=== PATIENT | male | born 1960 | race Caucasian/White ===

== ENCOUNTER → 2019-04-07 13:18 | Outpatient (CLI) | payer BC, SELFPAY ==
[2019-04-07 13:59] LABS: Cholesterol 188 mg/dL (140-199); HDL Cholesterol 56 mg/dL (40-60); LDL Cholesterol Calculated 111 mg/dL (<100); Triglycerides 106 mg/dL (35-150)
[2019-04-07 14:30] LABS: Prostate Specific Antigen Scrn 0.881 ng/mL (0.1-4.0)
[2019-04-07 15:33] LABS: Vitamin D 25 Hydroxy (D3) 62.8 ng/mL (30.0-100.0)
== END ==
PROVIDERS: PCP Student in an Organized Health Care Education/Training Program; Visit Provider Student in an Organized Health Care Education/Training Program
DX: Z13.220 Encounter for screening for lipoid disorders (principal); E55.9 Vitamin D deficiency, unspecified; Z12.5 Encounter for screening for malignant neoplasm of prostate
CPT/HCPCS: 36415; 80061; 82306; G0103

== ENCOUNTER → 2019-12-17 10:31 | Outpatient (CLI) | payer BC, SELFPAY ==
[2019-12-18 20:43] LABS: COVID19 Sendout Not Detected (Not Detect)
== END ==
PROVIDERS: PCP Student in an Organized Health Care Education/Training Program; Visit Provider Physician Assistant
DX: Z11.59 Encounter for screening for other viral diseases (principal)
CPT/HCPCS: 87635

== ENCOUNTER 2019-12-20 12:47 | Day surgery (SDC) | payer BC, SELFPAY ==
[2019-12-20 13:01] VITALS: BP 125/74; PULSE 62; RESP 16; TEMP 36.7; O2SAT 100; BMI 25.0
[2019-12-20] MEDS: SODIUM CHLORIDE 0.9% 1,000 ML 200 ML IV (13:22)
--- NOTE | 2019-12-20 13:32 | P.HP_ITS ---
History of Present Illness History of Present Illness Date Patient Seen: 12/20/19 Time Patient Seen: 13:32 [address]: [facility] Narrative: This is a 59-year-old man who had a prior screening colonoscopy at age 48, which he reports was normal. He denies any new symptoms of melena, hematochezia, unexplained weight loss, unexplained abdominal pain. He denies any family history of colon cancers or colon polyps. ROS Thirteen system review is otherwise negative other than as mentioned below and in HPI. PE: GENERAL: Well groomed and cooperative. Appears stated age. Answers questions promptly and appropriately. Vital signs noted. HENT: Normocephalic, atraumatic. Hearing intact. EYES: Conjunctiva pink, sclera white, no periorbital swelling. CARDIOVASCULAR: Regular rate. No pedal edema. RESPIRATORY: Non-tachypneic, breathing comfortably on room air. GASTROINTESTINAL: Abdomen soft and non-distended GENITALURINARY: No flank tenderness. MUSCULOSKELETAL: Equal tone and mass bilaterally. SKIN: Warm, dry, soft, appropriate color for ethnicity. No other lesions, rashes, or wounds. NEURO: Alert and Oriented X 3. No gross sensory deficits, or cognitive issues. PSYCH: Appropriate affect and mood. Patient History Medical History Anxiety (Chronic ~1994) Chicken pox (Resolved ~1971) Hearing loss (Resolved 2017) Measles (Resolved ~1963) Precancerous skin lesion (Resolved ~1999) Vitamin D insufficiency (Inactive) Surgical History Anesthesia (Resolved) History of tonsillectomy (Resolved 1963) History of vasectomy (Resolved 1988) Family & Social History Family History Mother Cancer Brain tumor Brother Overweight Grandmother Breast cancer Grandfather No problems noted. Family/Other No problems noted. Family/Other No problems noted. Social History: household members spouse Tobacco & Substance use: Smoking Status Never smoker alcohol intake current alcohol intake frequency a few times a week Substance Use Type does not use Meds Home Medications and Allergies Home Medications Medication Instructions Recorded Confirmed Type aspirin 81 mg tablet,delayed 81 mg PO DAILY #30 tab 03/09/18 12/20/19 Rx release lorazepam 0.5 mg tablet 0.25 mg PO BEDTIME PRN #10 tab 04/07/19 12/20/19 Rx Allergies Allergy/AdvReac Type Severity Reaction Status Date / Time No Known Drug Allergies Allergy Verified 04/07/19 12:46 Exam Vital Signs (past 8 hours): - 12/20/19 13:01 Temperature 98.1 F Pulse Rate 62 Respiratory Rate 16 Blood Pressure 125/74 Pulse Oximetry 100 Oxygen Delivery Method Room Air Assessment & Plan Assessment and plan (1) At average risk for colon cancer: Status: Acute Assessment & Plan narrative: Risks and benefits of screening colonoscopy and possible polypectomy were discussed with the patient including risk of bleeding, perforation, need for additional procedures, risks of anesthesia. The patient desires to proceed with the colonoscopy procedure. COVID-19 COVID-19 status: Negative Result date/Date tested (Pos, Neg/Pending): 12/17/19 Time Spent With Patient Time with patient: 15-24 minutes Quality VTE Deep Vein Thrombosis/Pulmonary Embolism Present on Admission: No
--- NOTE | 2019-12-20 13:35 | P.OP.ENDO_ITS ---
Operative Date/Time/Diagnoses Date of procedure: 12/20/19 Time of procedure: 13:35 Pre-op diagnosis: Average risk for colon cancer Post-op diagnosis: other (Normal colon) Procedure & Clinicians Study performed: Colonoscopy Procedural sedation performed by the endoscopist Indications: 59-year-old man at average risk for colon cancer, prior screening colonoscopy 10 years ago Surgeon: Melissa Kaur Procedure Notes SCOAP/Timeout: Performed Procedure in detail: The patient was brought to the room and placed in left lateral decubitus position with all bony prominences padded. A time-out was performed and then the patient was given procedural sedation starting with 4 mg of Versed and 100 mcg of fentanyl. Vitals were monitored throughout the procedure and remained stable. Once adequately sedated, the procedure was begun. A rectal exam was performed revealing no abnormalities. The colonoscope was then introduced to the rectum and advanced to the cecum in the usual fashion. The cecum was identified by the appendiceal orifice, the mucosal tri- fold, and the ileocecal valve. The scope was then retracted while rotating side to side and examining each mucosal fold. At the conclusion of the procedure retroflexion was performed and small grade 1-2 internal hemorrhoids without stigmata of bleeding were seen. The scope was then withdrawn from the rectum the procedure was concluded. The patient tolerated the procedure well and was transferred to the PACU in stable condition. Scope withdrawal time: 7 Sedation minutes: 16 Specimen(s): none sent Complications: none Impression: Normal colon Post-procedure Recommendations: Colonscopy in 10 years Follow up: as needed Disposition: PACU
[2019-12-20] MEDS: fentaNYL 250 MCG/5 ML INJ IV (13:56)
[2019-12-20] MEDS: MIDAZOLAM 5 MG/5 ML VIAL IV (13:56)
[2019-12-20 14:00] VITALS: BP 107/60; PULSE 60; RESP 12; TEMP 36.7; O2SAT 98
[2019-12-20 14:05] VITALS: BP 115/76; PULSE 65; RESP 12; O2SAT 97
[2019-12-20 14:10] VITALS: BP 120/74; PULSE 62; RESP 16; TEMP 36.7; O2SAT 99
== END 2019-12-20 14:26 | disposition home or self-care (01) ==
PROVIDERS: PCP Student in an Organized Health Care Education/Training Program; Referring Provider Student in an Organized Health Care Education/Training Program; Visit Provider Surgery
PROC: 0DJD8ZZ Inspection of Lower Intestinal Tract, Via Natural or Artificial Opening Endoscopic (ICD-10-PCS; CPT 45378; principal; 2019-12-20 13:45)
DX: Z12.11 Encounter for screening for malignant neoplasm of colon (principal); K64.0 First degree hemorrhoids
CPT/HCPCS: 45378; 99152; J2250; J3010

== ENCOUNTER 2021-02-04 16:12 | Emergency (ER) | payer BC, SELFPAY ==
--- NOTE | 2021-02-04 16:21 | DI.CT.S_ITS ---
PROCEDURE: CT HEAD/BRAIN WO CON INDICATIONS: trauma TECHNIQUE: Noncontrast 4.5 mm thick angled axial sections acquired from the foramen magnum to the vertex, with coronal and sagittal reformats. For radiation dose reduction, the following was used: automated exposure control, adjustment of mA and/or kV according to patient size. COMPARISON: [facility], CR, XR SHOULDER RT MIN 2V, 02/04/2021, 16:32. [facility], CT, CT CERVICAL SPINE WO CON, 02/04/2021, 16:38. FINDINGS: Image quality: Excellent. CSF spaces: Basal cisterns are patent. No extra-axial fluid collections. The ventricles are symmetric in size and shape, yet appear prominent. Brain: No intracranial bleeds or masses. There is cerebral volume loss for age, with resultant ventricular and sulcal prominence. There are periventricular and deep white matter chronic small vessel ischemic changes. There is intracranial internal carotid artery atherosclerosis. Skull and face: There is right posterior scalp hematoma seen, without an associated calvarial fracture. Calvarium and visualized facial bones appear intact, without suspicious lesions. There is an apparent osteoma along the inner table of the left calvarium, as on series 4, image 20 and on series 2, image 22. Sinuses: Visualized sinuses and mastoids are clear. IMPRESSION: No acute intracranial hemorrhage is seen. No acute intracranial process is seen. Right posterior scalp hematoma, without an associated fracture. The lateral ventricles demonstrate symmetric prominence. Left frontal osteoma seen along the inner table. Dictated by: Mustapha Coreas M.D. on 02/04/2021 at 15:54 Approved by: Mustapha Coreas M.D. on 02/04/2021 at 15:57
--- NOTE | 2021-02-04 16:21 | DI.RAD.S_ITS ---
PROCEDURE: XR SHOULDER RT MIN 2V INDICATIONS: trauma TECHNIQUE: 2 views of the shoulder were acquired. COMPARISON: None. FINDINGS: Bones: Acute slightly comminuted fracture involving distal right clavicular shaft is seen with depression and overlapping at fracture site. No other fracture is seen. No dislocation. Shoulder joint osteoarthritic changes are noted. No suspicious bony lesions. Visualized ribs appear intact. Soft tissues: No suspicious soft tissue calcifications. IMPRESSION: Acute slightly comminuted fracture involving right distal clavicular shaft with depression and overlapping at fracture site. Right shoulder joint osteoarthritis. No dislocation. Dictated by: Joo Palomino M.D. on 02/04/2021 at 16:46 Approved by: Joo Palomino M.D. on 02/04/2021 at 16:46
--- NOTE | 2021-02-04 16:21 | DI.CT.S_ITS ---
PROCEDURE: CT CERVICAL SPINE WO CON INDICATIONS: trauma TECHNIQUE: Noncontrast 3 mm thick sections acquired from the skull base to the T4 level. Sagittal and coronal reformats were then constructed. For radiation dose reduction, the following was used: automated exposure control, adjustment of mA and/or kV according to patient size. COMPARISON: [facility], CR, XR SHOULDER RT MIN 2V, 02/04/2021, 16:32. [facility], CT, CT HEAD/BRAIN WO CON, 02/04/2021, 16:38. FINDINGS: Image quality: Excellent. Bones: No fractures or dislocations. Visualized superior ribs are intact. There is moderate to severe disc space narrowing seen at the C5-C6 level, with posteriorly directed endplate osteophytes. Focal degenerative change is seen involving the C1-C2 interface anteriorly. Milder degenerative changes are seen elsewhere. Soft tissues: Prevertebral soft tissues are normal in thickness. No paravertebral hematomas. No apical pneumothoraces. Low-density lesions can be seen involving both sides of the thyroid. The largest is seen on the right that measures up to 1.7 cm. IMPRESSION: Negative for acute fracture. Focal C5-C6 degenerative change. Low-density lesions can be seen involving both sides of the thyroid, with the largest on the right measuring up to 1.7 cm. If clinically appropriate, please consider a scheduled follow-up thyroid ultrasound further evaluation. Dictated by: Mustapha Coreas M.D. on 02/04/2021 at 15:58 Approved by: Mustapha Coreas M.D. on 02/04/2021 at 16:00
--- NOTE | 2021-02-04 20:28 | ED.BACK ---
HPI - Back Pain/Injury General Chief Complaint: Trauma Stated Complaint: FALLEN OF A LADDER 4FT HIT HEAD RT SHOULDER INJURY Time Seen by Provider: 02/04/21 20:25 Source: patient and family () Mode of arrival: Ambulatory Limitations: no limitations History of Present Illness HPI Narrative: This is a 60-year-old male who fell off a ladder. Patient was stranding ladder in his RV when he lost his balance. He fell when the ladder fell over. Patient fell onto his right side, he did strike his head he does remember hitting the ground but his states he came inside inside the house and then went down into the basement and seemed a little bit confused initially. Patient also has a cut on his right brow and the back of his scalp. He has pain at the right shoulder. He denies any neck pain. Denies any current headache. No chest pain or shortness of breath. New numbness, tingling or weakness, no loss of bowel or bladder control. Patient states he takes an aspirin 81 mg daily he denies any other daily medications. He denies any allergies to medications. No tobacco, alcohol or illicit. Related Data Previous Rx's Medication Instructions Recorded aspirin 81 mg tablet,delayed 81 mg PO DAILY #30 tab 03/09/18 release lorazepam 0.5 mg tablet (Ativan) 0.25 mg PO BEDTIME PRN #10 tab 04/07/19 silver sulfadiazine 1 % topical 1 applictn TOP BID PRN #25 gram 02/12/20 cream (Silvadene) Allergies Allergy/AdvReac Type Severity Reaction Status Date / Time No Known Drug Allergies Allergy Verified 02/12/20 13:16 Review of Systems Review of Systems ROS Unobtainable: All systems reviewed & are unremarkable except as noted in HPI and below Patient History Medical History Anxiety (~1994) Chicken pox (~1971) Hearing loss (2017) Measles (~1963) Precancerous skin lesion (~1999) Vitamin D insufficiency Surgical History Anesthesia History of tonsillectomy (1963) History of vasectomy (1988) Family History Mother Cancer Brain tumor Brother Overweight Grandmother Breast cancer Grandfather No problems noted. Family/Other No problems noted. Family/Other No problems noted. Social History household members: spouse Smoking Status: Never smoker alcohol intake: current substance use type: does not use Smoking Status: Never smoker alcohol intake frequency: a few times a week Substance Use Type: does not use Exam Narrative Exam Narrative: GEN: Patient appears in mild distress. HEAD: No evidence of patient is 1.75 laceration of the right brow which is slightly gapped, he also has a 2 cm laceration of the right posterior scalp which is also gap. No raccoon/Nieto sign. NECK: Nontender, painless range of motion, trachea midline Negative Nexus criteria, there is no mid line tenderness, distracting injury, altered mental status, neuro deficit, recent EtOH. EYES: PERRLA, EOMI ENT: External inspection normal other than noted above trachea is midline, TM's are normal no hemotypanum, Nares are clear, no septal hematoma, no dental or oral injury, airway is normal and with normal occlusion, No bony tenderness RESP: Chest is nontender and has symmetric movement, no ecchymosis, breath sounds are normal no crackles, wheezes or rales CVS: Heart sounds are normal, no murmur noted, No JVD. ABG/GI: Nontender, soft, normal bowel sounds, no distention, no organomegaly, pelvic rock is negative NEURO: Oriented AOx3, neuro is grossly intact, sensation and motor is normal all 4 extremities moving, cranial nerves II through XII are intact, GCS is 15 PSYCH: Normal mood and affect SKIN: Intact otherwise, warm and dry, no crepitus and without decubitus BACK: No CVA tenderness, no vertebral tenderness, no step-off's, no crepitus EXT: Patient has pain with palpation of the right shoulder particularly over the AC/clavicle with some mild deformity patient has pain with any attempted movement at the shoulder. No other bony tenderness of the right arm. 2+ radial pulse bilaterally. Normal sensation in all 5 fingers with equal movement in hands and wrists. Hips are nontender, no pedal edema, normal color and temperature, normal range of motion of extremities with normal tendon exam, 2+ pulses in all four extremities Initial Vital Signs Initial Vital Signs: Vital Signs Temperature 97.8 F 02/04/21 21:40 Pulse Rate 72 02/04/21 21:40 Respiratory Rate 16 02/04/21 21:40 Blood Pressure 132/66 02/04/21 21:40 Pulse Oximetry 98 02/04/21 21:40 Procedures Laceration Repair Laceration 1: Time of procedure: 22:28 Site: scalp Side (If applicable): right Size (cm): 2 Description: linear and irregular Depth: simple, single layer Local Anesthetic: lidocaine 1% Amount of anesthesia used (mL): 4 Pre-repair: wound explored, irrigated extensively and deep structures intact Skin layer closed with: james Number of sutures: 4 Laceration 2: Time of procedure: 22:29 Site: face Side (If applicable): right (eyebrow) Size (cm): 1.75 Description: linear and irregular Depth: simple, single layer Local Anesthetic: lidocaine 1% Amount of anesthesia used (mL): 2 Pre-repair: wound explored, irrigated extensively and deep structures intact Skin layer closed with: vicryl Size (cm): 5-0 Number of sutures: 4 Scores GCS [place] coma scale eye opening: Spontaneous [place] coma scale verbal response: Orientated [place] coma scale motor response: Obey commands Luis E coma scale total score: 15 Course Orders Ordered: Discontinued Medications Ibuprofen (Ibuprofen 400 Mg Tablet) 800 mg PO NOW ONE Stop: 02/04/21 22:12 Last Admin: 02/04/21 22:18 Dose: 800 mg Documented by: AKANKSHA Lidocaine/Sodium Bicarbonate (Lido 1%/Sod Bicarb 8.4% (10ml) 10 Ml Syringe) 10 ml INJ NOW ONE Stop: 02/04/21 20:42 Last Admin: 02/04/21 21:13 Dose: 10 ml Documented by: SHAKIR Vital Signs Vital signs: Vital Signs - 8 hr 02/04/21 21:40 Temperature 97.8 F Pulse Rate 72 Respiratory Rate 16 Blood Pressure 132/66 Pulse Oximetry 98 MDM - Back Pain/Injury Imaging Data CT scan - head: Radiologist's Impression: Nick Rubin??60??M??1960 ? Allergy/Adv: No Known Drug Allergies (More??) Close Shoulder X-Ray (Signed) Joo Palomino - 02/04/[address] (Signed) Mustapha Coreas - 02/04/[address] (Signed) Mustapha Coreas - 02/04/21 Telemetry Strips 12/20/19 Launch?Image [address] [address] [address] Scan Report Signed Patient: Nick Rubin MR#: [id number] : 1960 Acct:[id number] Age/Sex: 60 / M Date of Service: 02/04/21 Loc: ED Accession Number: [id number] ?? Procedure: CT head/brain wo con Ordering Provider: Maria Dolores Rivers D.O. PROCEDURE:? CT HEAD/BRAIN WO CON ? INDICATIONS:? trauma ? TECHNIQUE:? Noncontrast 4.5 mm thick angled axial sections acquired from the foramen magnum to the vertex, with coronal and sagittal reformats.? For radiation dose reduction, the following was used:? automated exposure control, adjustment of mA and/or kV according to patient size.? ? COMPARISON:? [facility], CR, XR SHOULDER RT MIN 2V, 02/04/2021, 16:32.? [facility], CT, CT CERVICAL SPINE WO CON, 02/04/2021, 16:38. ? FINDINGS:? Image quality:? Excellent.? ? CSF spaces:? Basal cisterns are patent.? No extra-axial fluid collections.? The ventricles are symmetric in size and shape, yet appear prominent.? ? Brain:? No intracranial bleeds or masses.? There is cerebral volume loss for age, with resultant ventricular and sulcal prominence.? There are periventricular and deep white matter chronic small vessel ischemic changes.? There is intracranial internal carotid artery atherosclerosis.? ? Skull and face:? There is right posterior scalp hematoma seen, without an associated calvarial fracture.? Calvarium and visualized facial bones appear intact, without suspicious lesions.? There is an apparent osteoma along the inner table of the left calvarium, as on series 4, image 20 and on series 2, image 22. ? Sinuses:? Visualized sinuses and mastoids are clear.? ? ? IMPRESSION:? No acute intracranial hemorrhage is seen.? ? No acute intracranial process is seen.? ? Right posterior scalp hematoma, without an associated fracture. ? The lateral ventricles demonstrate symmetric prominence. ? Left frontal osteoma seen along the inner table.? ? Dictated by: Mustapha Coreas M.D. on 02/04/2021 at 15:54 ? ? Approved by: Mustapha Coreas M.D. on 02/04/2021 at 15:57?? CT - cervical spine: Radiologist's Impression: [address] [address] [address] Scan Report Signed Patient: Nick Rubin MR#: [id number] : 1960 Acct:[id number] Age/Sex: 60 / M Date of Service: 02/04/21 Loc: ED Accession Number: [id number] ?? Procedure: CT cervical spine wo con Ordering Provider: Maria Dolores Rivers D.O. PROCEDURE:? CT CERVICAL SPINE WO CON ? INDICATIONS:? trauma ? TECHNIQUE:? Noncontrast 3 mm thick sections acquired from the skull base to the T4 level.? Sagittal and coronal reformats were then constructed.? For radiation dose reduction, the following was used:? automated exposure control, adjustment of mA and/or kV according to patient size.? ? COMPARISON:? [facility], CR, XR SHOULDER RT MIN 2V, 02/04/2021, 16:32.? [facility], CT, CT HEAD/BRAIN WO CON, 02/04/2021, 16:38. ? FINDINGS:? Image quality:? Excellent.? ? Bones:? No fractures or dislocations.? Visualized superior ribs are intact.? ? There is moderate to severe disc space narrowing seen at the C5-C6 level, with posteriorly directed endplate osteophytes. Focal degenerative change is seen involving the C1-C2 interface anteriorly.? Milder degenerative changes are seen elsewhere.? ? Soft tissues:? Prevertebral soft tissues are normal in thickness.? No paravertebral hematomas.? No apical pneumothoraces.? Low-density lesions can be seen involving both sides of the thyroid.? The largest is seen on the right that measures up to 1.7 cm. ? ? IMPRESSION:? Negative for acute fracture. ? Focal C5-C6 degenerative change. ? Low-density lesions can be seen involving both sides of the thyroid, with the largest on the right measuring up to 1.7 cm. If clinically appropriate, please consider a scheduled follow-up thyroid ultrasound further evaluation. ? ? ? Dictated by: Mustapha Coreas M.D. on 02/04/2021 at 15:58 ? ? Approved by: Mustapha Coreas M.D. on 02/04/2021 at 16:00?? Extremity x-ray #1: Radiologist's Impression: Close Shoulder X-Ray (Signed) Joo Palomino - 02/04/[address] (Signed) Mustapha Coreas - 02/04/[address] (Signed) Mustapha Coreas - 02/04/21 Telemetry Strips 12/20/19 Launch?[address] [address] XRay Report Signed Patient: Nick Rubin MR#: [id number] : 1960 Acct:[id number] Age/Sex: 60 / M Date of Service: 02/04/21 Loc: ED Accession Number: [id number] ?? Procedure: XR shoulder RT min 2V Ordering Provider: Maria Dolores Rivers D.O. PROCEDURE:? XR SHOULDER RT MIN 2V ? INDICATIONS:? trauma ? TECHNIQUE:? 2 views of the shoulder were acquired.? ? COMPARISON:? None. ? FINDINGS:? ? Bones:? Acute slightly comminuted fracture involving distal right clavicular shaft is seen with depression and overlapping at fracture site.? No other fracture is seen.? No dislocation.? Shoulder joint osteoarthritic changes are noted.? No suspicious bony lesions.? Visualized ribs appear intact.? ? Soft tissues:? No suspicious soft tissue calcifications.? ? IMPRESSION:? Acute slightly comminuted fracture involving right distal clavicular shaft with depression and overlapping at fracture site.? Right shoulder joint osteoarthritis.? No dislocation. ? ? Dictated by: Joo Palomino M.D. on 02/04/2021 at 16:46 ? ? Approved by: Joo Palomino M.D. on 02/04/2021 at 16:46?? MDM Narrative Medical decision making narrative: This is a 60-year-old male in approximately 4 foot fall, striking his head with a laceration his right brow and scalp. There is some reported possible confusion immediately after although patient is GCS 15 and appropriate here. Suspect patient may have had a concussion. He does take an aspirin [address] of the head and C-spine were occluded which are negative except for a incidental thyroid nodule and no other acute changes. Patient does have a right clavicular fracture. On exam no other major changes. Lacerations were repaired. All questions were answered. Patient was placed in sling given follow-up and return precautions. Discharge Plan Departure Patient Disposition: Home Clinical Impression: Clavicle fracture, Thyroid nodule, Concussion, Laceration of scalp, Laceration of brow without complication Instructions: Clavicle Fracture, DI for Laceration Repair -- James Activity Restrictions/Additional Instructions: Follow-up with orthopedic surgery for recheck in the next week. If you prefer a concert with your primary care physician. Referral is included below. Call for an appointment. You do have a thyroid nodule noted incidentally on your CT scan which should be followed up with her primary care for ultrasound You may take Tylenol up to a 1000 mg every 8 hours as needed and/or ibuprofen up to 800 mg every 8 hours. Wound Care: Keep wound(s) clean and dry. Wash daily with soap and water only. Do not use over the counter products (alcohol or peroxide)on the wounds unless instructed by a physician. If wound condition worsens (increased/expanding redness, developing fluid blisters, or worsening pain), either contact your doctor for an urgent re-assessment , or return to the Emergency Department. Return to the Emergency Department for any new or worsening symptoms. Return to the ED, urgent care, or visit a primary care doctor for removal or suture or james in 7-10 days. Please refer turned if you are having rapidly worsening pain, numbness tingling or weakness of your arm, if there is tenting or open bone appears like it is going to poke out through the skin, new chest pain, shortness of breath, lightheadedness or passing out, severe headaches, signs of infection, new neck or back pain or other new or concerning symptoms. Prescriptions: No Action aspirin 81 mg tablet,delayed release (DR/EC) 81 mg PO DAILY Qty: 30 RF: 0 silver sulfadiazine [Silvadene] 1 % cream 1 applictn TOP BID PRN (Reason: wound healing) Qty: 25 RF: 0 lorazepam [Ativan] 0.5 mg tablet 0.25 mg PO BEDTIME PRN (Reason: anxiety) Qty: 10 RF: 5 Referrals: Steven Guillen MD [Primary Care Provider] - Cait Ryder MD [Physician] -
[2021-02-04] MEDS: LIDO 1%/SOD BICARB 8.4% (10ML) 10 ML SYRINGE INJ (21:13)
[2021-02-04 21:40] VITALS: BP 132/66; PULSE 72; RESP 16; TEMP 36.6; O2SAT 98
[2021-02-04] MEDS: IBUPROFEN 400 MG TABLET 800 MG PO (22:18)
== END 2021-02-04 22:45 | disposition home or self-care (01) ==
PROVIDERS: Emergency Provider Emergency Medicine; PCP Student in an Organized Health Care Education/Training Program
DX: S42.031A Displaced fracture of lateral end of right clavicle, initial encounter for closed fracture (principal); S06.0X0A Concussion without loss of consciousness, initial encounter; S01.01XA Laceration without foreign body of scalp, initial encounter; S01.111A Laceration without foreign body of right eyelid and periocular area, initial encounter; E04.1 Nontoxic single thyroid nodule; W11.XXXA Fall on and from ladder, initial encounter
CPT/HCPCS: 12001; 12011; 70450; 72125; 73030; 99284

== ENCOUNTER → 2021-02-19 13:46 | Outpatient (CLI) | payer BC, SELFPAY ==
[2021-02-19 15:14] LABS: TSH w/ Reflex to FT4 2.21 uIU/mL (0.47-4.68)
== END ==
PROVIDERS: PCP Student in an Organized Health Care Education/Training Program; Referring Provider Student in an Organized Health Care Education/Training Program; Visit Provider Student in an Organized Health Care Education/Training Program
DX: E04.1 Nontoxic single thyroid nodule (principal)
CPT/HCPCS: 36415; 84443

== ENCOUNTER 2021-02-22 22:10 | Emergency (ER) | payer BC, SELFPAY ==
[2021-02-22 22:15] VITALS: BP 137/76; PULSE 60; RESP 18; TEMP 36.6; O2SAT 97; BMI 26.4
[2021-02-22 22:54] VITALS: BP 134/71; PULSE 57; O2SAT 99
[2021-02-22 23:00] VITALS: PULSE 55; RESP 22; O2SAT 98
[2021-02-22] MEDS: ONDANSETRON 4 MG/2 ML INJ IV (23:19)
[2021-02-22] MEDS: SODIUM CHLORIDE 0.9% 1,000 ML 1000 ML IV (23:19)
[2021-02-22] MEDS: MECLIZINE HCL 12.5 MG TABLET 25 MG PO (23:29)
[2021-02-22 23:30] VITALS: PULSE 56; RESP 19; O2SAT 96
[2021-02-23] VITALS: PULSE 52; RESP 13; O2SAT 99
[2021-02-23 00:30] VITALS: PULSE 57; RESP 13; O2SAT 98
[2021-02-23 01:00] VITALS: BP 130/79; PULSE 59; RESP 13; O2SAT 98
--- NOTE | 2021-02-23 01:25 | ED.GENADULT ---
HPI - General Adult General Chief complaint: Dizziness Stated complaint: dizzy Time Seen by Provider: 02/22/21 23:11 Mode of arrival: Wheelchair Limitations: no limitations History of Present Illness HPI narrative: 60-year-old gentleman with no significant medical history comes in with 24 hours of increasing dizziness. He fell off a ladder earlier this month sustained a clavicle fracture and did hit his head. He had a CT scan at that time that was unremarkable. He notes that yesterday he was working on his boat and ended up bumping his head over the occiput and noted significant pain. He also noted that it hit exactly where the laceration on the back of his head was. Over the next 24 hours he began having episodes of dizziness associated with movement. Describes the room spinning and lasting only a brief period of time. Had an episode when he sat up from bed 1st thing this morning. Another episode when he laid down on a couch in the middle of the day. This evening he was sitting watching TV and began having significant dizziness to the point that he came to the ER for further evaluation. He does not describe specific nausea, headache, no visual changes, no headaches, no vomiting, no abdominal pain, palpitations, chest pain or lower extremity edema. Related Data Previous Rx's Medication Instructions Recorded aspirin 81 mg tablet,delayed 81 mg PO DAILY #30 tab 03/09/18 release meclizine 25 mg tablet 25 mg PO TID PRN #20 tab 02/23/21 ondansetron 4 mg disintegrating 4 mg PO Q8H PRN #10 tab 02/23/21 tablet Allergies Allergy/AdvReac Type Severity Reaction Status Date / Time No Known Drug Allergies Allergy Verified 02/19/21 13:26 Review of Systems Review of Systems Narrative: Remainder of complete review of systems is otherwise unremarkable except for that included in the HPI. Patient History Medical History Anxiety (~1994) Chicken pox (~1971) Hearing loss (2017) Measles (~1963) Precancerous skin lesion (~1999) Vitamin D insufficiency Surgical History Anesthesia History of melanoma excision History of tonsillectomy (1963) History of vasectomy (1988) Family History Mother Cancer Brain tumor Brother Overweight Grandmother Breast cancer Grandfather No problems noted. Family/Other No problems noted. Family/Other No problems noted. Social History household members: spouse Smoking Status: Never smoker alcohol intake: current substance use type: does not use Smoking Status: Never smoker alcohol intake frequency: a few times a week Substance Use Type: does not use Exam Narrative Exam Narrative: General: Healthy appearing, in no acute distress. Able to give a complete and coherent history. Well-nourished well-developed HEENT: Moist mucous membranes, normal sclera with reactive pupils, horizontal nystagmus with moving head rapidly to the right with a rapid beat component to the left. Respiratory: Lungs are clear to auscultation, no wheezing no rales no rhonchi. Full and symmetrical air movement Chest: Significant hematoma over the left chest shoulder and upper arm from clavicular fracture sustained on February 04 Cardiac: Regular rate and rhythm no murmurs no bruits Abdomen: Soft, nontender, good bowel tones, no flank pain Skin: Warm and dry, no rashes Neurologic: Grossly neurologically intact with no obvious asymmetries or abnormalities Extremities: No trauma, well perfused Psych: Cooperative, appropriate insight and affect Initial Vital Signs Initial Vital Signs: Vital Signs Temperature 97.9 F 02/22/21 22:15 Pulse Rate 60 02/22/21 22:15 Respiratory Rate 18 02/22/21 22:15 Blood Pressure 137/76 02/22/21 22:15 Pulse Oximetry 97 02/22/21 22:15 Course Orders Ordered: Discontinued Medications Sodium Chloride (Normal Saline 0.9%) 1,000 mls @ 1,000 mls/hr IV BOLUS ONE Stop: 02/23/21 00:10 Last Infusion: 02/23/21 00:12 Dose: 0 mls/hr Documented by: Admin: 02/22/21 23:19 Dose: 1,000 mls/hr Documented by: ANA Meclizine HCl (Meclizine Hcl 12.5 Mg Tablet) 25 mg PO NOW ONE Stop: 02/22/21 23:12 Last Admin: 02/22/21 23:29 Dose: 25 mg Documented by: ANA Ondansetron HCl (Ondansetron 4 Mg/2 Ml Inj) 4 mg IV NOW ONE Stop: 02/22/21 23:12 Last Admin: 02/22/21 23:19 Dose: 4 mg Documented by: ANA Vital Signs Vital signs: Vital Signs - 8 hr 02/22/21 22:15 02/22/21 22:54 02/22/21 23:00 Temperature 97.9 F Pulse Rate 60 57 L 55 L Respiratory Rate 18 22 Blood Pressure 137/76 134/71 Pulse Oximetry 97 99 98 02/22/21 23:30 02/23/21 00:00 02/23/21 00:30 Temperature Pulse Rate 56 L 52 L 57 L Respiratory Rate 19 13 13 Blood Pressure Pulse Oximetry 96 99 98 Medical Decision Making MDM Narrative Medical decision making narrative: 60-year-old gentleman presents with benign positional vertigo type complaints. The positional change and nystagmus seems to confirm this. It may have been that the small bump to his head yesterday dislodged otoliths to cause symptoms today. He does not have any other concerning symptoms to suggest a ?2nd hit? type traumatic brain injury. He responded well to a L of fluid Zofran and meclizine. Minimal symptoms at time of discharge. I do not suspect intracranial hemorrhage, infection, migraine, stroke or life-threatening etiology that would require hospitalization at this time. Findings reviewed with patient and his . He is not able to do the Bangs-Hallpike maneuvers due to his clavicle fracture Discharge Plan Departure Patient Disposition: Home Clinical Impression: Benign paroxysmal positional vertigo Instructions: Benign Paroxysmal Positional Vertigo Activity Restrictions/Additional Instructions: Thank you for coming in today Your symptoms and exam are consistent with benign positional vertigo. I am not concerned that the minor bump on your head yesterday has caused problems related to your head injury on February 04. Your responded nicely to both Zofran and meclizine to help with the vertiginous symptoms. And have been given prescriptions for both. Prescriptions were electronically transmitted to [facility] If you have worsening symptoms or develops a new component to the symptoms please feel free to return to the emergency room for additional evaluation Prescriptions: New ondansetron 4 mg tablet,disintegrating 4 mg PO Q8H PRN (Reason: nausea and vomiting) Qty: 10 RF: 0 meclizine 25 mg tablet 25 mg PO TID PRN (Reason: dizziness) Qty: 20 RF: 0 No Action aspirin 81 mg tablet,delayed release (DR/EC) 81 mg PO DAILY Qty: 30 RF: 0 Referrals: Steven Guillen MD [Primary Care Provider] -
[2021-02-23 01:30] VITALS: BP 134/71; PULSE 67; RESP 20; O2SAT 98
[2021-02-23] MEDS: ONDANSETRON 4 MG ODT PREPACK 1 BOTTLE MISC (01:51)
== END 2021-02-23 02:00 | disposition home or self-care (01) ==
PROVIDERS: Emergency Provider Emergency Medicine; PCP Student in an Organized Health Care Education/Training Program
DX: H81.10 Benign paroxysmal vertigo, unspecified ear (principal)
CPT/HCPCS: 96361; 96374; 99284; J2405

== ENCOUNTER → 2021-02-26 09:44 | Outpatient (CLI) | payer BC, SELFPAY ==
--- NOTE | 2021-02-26 09:44 | DI.US.S_ITS ---
PROCEDURE: US THYROID INDICATIONS: NODULES ON CT TECHNIQUE: Real-time scanning was performed of the thyroid gland, with image documentation. COMPARISON: None. FINDINGS: Right: Thyroid lobe measures 5.1 x 2.0 x 1.8 cm, and is homogeneous in echotexture. Left: Thyroid lobe measures 4.5 x 2.3 x 1.3 cm, and is homogenous in echotexture. Isthmus: 2.2 mm thick. Nodule number: 1 Location: Left inferior mid Size: 0.4 x 0.3 cm. Composition: Solid Echogenicity: Hyperechoic Shape: wider than tall. Margins: None Echogenic foci: Macro calcifications Total points: 6 ACR TI-RADS category: 4 Nodule number: 2 Location: Left inferior Size: 1.8 x 1.2 x 1.0 cm. Composition: Solid Echogenicity: Hypoechoic Shape: wider than tall. Margins: Smooth Echogenic foci: None Total points: 4 ACR TI-RADS category: 4 Nodule number: 3 Location: Right inferior Size: 2.5 x 1.8 x 1.3 cm. Composition: Solid Echogenicity: Hypoechoic Shape: wider than tall. Margins: Smooth Echogenic foci: None Total points: 4 ACR TI-RADS category: 4 IMPRESSION: 1. Lesion 1 is considered category 4. Secondary to small size, no additional follow-up is recommended as below. 2. Lesions 2 and 3 are considered category 4. Secondary to size, FNA is recommended. ACR TI-RADS definitions and recommendations: TI-RADS 1 (benign): 0 points. FNA not needed. TI-RADS 2 (not suspicious): 2 points. FNA not needed. TI-RADS 3 (mildly suspicious): 3 points. * FNA if 2.5 cm or larger, follow up if 1.5 cm or larger (at 1, 3, and 5 years). TI-RADS 4 (moderately suspicious): 4-6 points. * FNA if 1.5 cm or larger, follow up if 1 cm or larger (at 1, 2, 3, and 5 years). TI-RADS 5 (highly suspicious): 7 points or more. * FNA if 1 cm or larger, follow up if 0.5 cm or larger (every year for 5 years). Dictated by: Nichol Hall M.D. on 02/26/2021 at 17:01 Approved by: Nichol Hall M.D. on 02/26/2021 at 17:03
== END ==
PROVIDERS: PCP Student in an Organized Health Care Education/Training Program; Referring Provider Student in an Organized Health Care Education/Training Program; Visit Provider Student in an Organized Health Care Education/Training Program
DX: E04.2 Nontoxic multinodular goiter (principal)
CPT/HCPCS: 76536

== ENCOUNTER → 2021-03-21 09:47 | Outpatient (CLI) | payer BC, SELFPAY ==
--- NOTE | 2021-03-21 | PATH_ITS ---
Note [facility] Accession Number: [id number] TESTS RESULT FLAG UNITS REF RANGE LAB Clinician Provided Cytology Information No. of containers..00 Previously Prepared Cytology Slide 35 Unknown Storage/container code(s) Source: LEFT THYROID NODULE DIAGNOSIS: LEFT THYROID NODULE NEGATIVE FOR MALIGNANT CELLS. B[place] CATEGORY II. SPECIMEN CONSISTS OF BENIGN FOLLICULAR CELLS, HEMOSIDERIN-LADEN MACROPHAGES, COLLOID, AND BLOOD. THIS PATTERN IS CONSISTENT WITH A COLLOID NODULE. Pathologist ICD10: 02 E04.1 Clinical history: Right: Thyroid lobe measures 5.1 x 2.0 x 1.8 cm, and is homogeneous in echotexture. Left: Thyroid lobe measures 4.5 x 2.3 x 1.3 cm, and is homogenous in echotexture. Isthmus: 2.2 mm thick. Signed out by: Samantha Pace MD, Pathologist NPI- [id number] Performed by: Brennon Nixon, Brine Tank Tender ([facility]) Gross description: 30 CC, PINK, CLEAR RECIEVED: IN CYTOLYT WITH 5 ALCOHOL FIXED AND 5 QUICK STAINED SLIDES ALSO 1 RNA VIAL WAS RECEIVED FOR FURTHER TESTING. /VDU 03/22/2021 0651 [facility] FLAG LEGEND: L-Low Normal,H-High Normal,LL-Alert Low,HH-Alert High <-Panic Low,>-Panic High,A-Abnormal,AA-Critical Abnormal Performed at: 01 =Z [facility] [address] [place] [address], [place] [address] Gurjit Becker MD, 02 [facility] [place] [id number] [place] [address] Audrey Muñiz MD, Performed at: 01 [facility] Cytology [address] [id number] MD Gurjit Becker MD Phone: [phone]
--- NOTE | 2021-03-21 | PATH_ITS ---
Note [facility] Accession Number: [id number] TESTS RESULT FLAG UNITS REF RANGE LAB Clinician Provided Cytology Information No. of containers..00 Previously Prepared Cytology Slide 35 Unknown Storage/container code(s) Source: RIGHT THYROID NODULE DIAGNOSIS: RIGHT THYROID NODULE NEGATIVE FOR MALIGNANT CELLS. BETHESDA CATEGORY II. SPECIMEN CONSISTS OF BENIGN FOLLICULAR CELLS, HEMOSIDERIN-LADEN MACROPHAGES, COLLOID, AND BLOOD. THIS PATTERN IS CONSISTENT WITH A COLLOID NODULE. Pathologist ICD10: 02 E04.1 Clinical history: Right: Thyroid lobe measures 5.1 x 2.0 x 1.8 cm, and is homogeneous in echotexture. Left: Thyroid lobe measures 4.5 x 2.3 x 1.3 cm, and is homogenous in echotexture. Isthmus: 2.2 mm thick. Signed out by: Samantha Pcae MD, Pathologist NPI- [id number] Performed by: Jovita Hayden, Gymnastics Coach ([facility]) Gross description: 30 CC, PINK, CLEAR RECIEVED: IN CYTOLYT WITH 5 ALCOHOL FIXED AND 5 QUICK STAINED SLIDES ALSO 1 RNA VIAL WAS RECEIVED FOR FURTHER TESTING. /VDU 03/22/2021 0651 [facility] FLAG LEGEND: L-Low Normal,H-High Normal,LL-Alert Low,HH-Alert High <-Panic Low,>-Panic High,A-Abnormal,AA-Critical Abnormal Performed at: 01 =Z [facility] [address] [place] [address], [place] [address] Gurjit Becker MD, 02 [facility] [place] [id number] [place] [id number] Audrey Muñiz MD, Performed at: 01 [facility] Cytology [address] [id number] MD Gurjit Becker MD Phone: [phone]
--- NOTE | 2021-03-21 09:47 | DI.US.S_ITS ---
PROCEDURE: US FINE NEEDLE ASPIRATION INDICATIONS: FNA of thyroid nodules #2 and #3 on recent u/s TECHNIQUE: The indications, alternatives, benefits, risks, and complications of the procedure were explained to the patient. Written informed consent was obtained and placed in the chart. The thyroid region was examined sonographically and a site was chosen for ultrasound guided percutaneous sampling. The skin was prepared and draped in the usual fashion, and anesthetized with 1% lidocaine infiltrated from the skin down to the thyroid gland. Multiple passes were then performed, with contents emptied into an appropriate pathology specimen container. A bandage was applied to the area of access at completion of the study. COMPARISON: None. FINDINGS: Location(s) of lesion(s) sampled: Mid to lower right lobe. Lower left lobe [place]: 22 and 25 gauge needles. Number of passes: 6 passes on the right and 7 passes on the left . Medications: 1% lidocaine for local anaesthesia. Complications: None. IMPRESSION: Successful ultrasound-guided thyroid nodule fine needle aspiration, with cytology results pending. Please see chart below for management recommendations based on cytology results. Upper Tract System ReportingRecommendationsNon-diagnostic* Repeat US-guided FNA, with on-site cytology evaluation if possible. * Repeated non-diagnostic nodules without high suspicion US features: close observation vs surgical consult. * Consider surgery if nodule has high suspicion US features, grows >20% in 2 dimensions on followup, or patient has clinical risk factors for malignancy. Benign* If nodule has high suspicion US features: repeat US and FNA within 12 months. * If nodule has low to intermediate suspicion US features: repeat US at 12-24 months. If nodule grows (20% increase in at least 2 dimensions, with minimal increase of 2 mm or >50% change in volume), or development of new suspicious US features, then repeat FNA or continue followup. * If nodule has very low suspicion US features: followup US at >24 months. Atypia of undetermined significance, follicular lesion of undetermined significanceRepeat FNA, molecular testing, followup US, or surgical consult.Follicular neoplasm, suspicious for follicular neoplasmSurgical consult; also consider molecular testing. Suspicious for malignancySurgical consult.MalignantSurgical consult. Dictated by: Delfin Bob M.D. on 03/22/2021 at 8:55 Approved by: Delfin Bob M.D. on 03/22/2021 at 9:04
== END ==
PROVIDERS: PCP Student in an Organized Health Care Education/Training Program; Referring Provider Student in an Organized Health Care Education/Training Program; Visit Provider Student in an Organized Health Care Education/Training Program
DX: E04.2 Nontoxic multinodular goiter (principal)
CPT/HCPCS: 10005

== ENCOUNTER → 2021-06-24 10:03 | Outpatient (CLI) | payer BC, SELFPAY ==
[2021-06-24 11:35] LABS: Prostate Specific Antigen Scrn 1.34 ng/mL (0.1-4.0)
== END ==
PROVIDERS: PCP Student in an Organized Health Care Education/Training Program; Referring Provider Student in an Organized Health Care Education/Training Program; Visit Provider Student in an Organized Health Care Education/Training Program
DX: Z12.5 Encounter for screening for malignant neoplasm of prostate (principal)
CPT/HCPCS: 36415; G0103

== ENCOUNTER → 2022-05-12 15:43 | Outpatient (CLI) | payer BC, SELFPAY ==
--- NOTE | 2022-05-12 15:44 | DI.US.S_ITS ---
PROCEDURE: US THYROID INDICATIONS: NODULES TECHNIQUE: Real-time scanning was performed of the thyroid gland, with image documentation. COMPARISON: 02/26/2021 FINDINGS: Right: Thyroid lobe measures 6.0 x 2.0 x 1.6 cm, and is homogeneous in echotexture. Left: Thyroid lobe measures 6.1 x 2.3 x 1.6 cm, and is homogenous in echotexture. Isthmus: 2 mm thick. Nodule number: 1 Location: Left inferior Size: 0.4 x 0.3 x 0.3 cm, unchanged. Composition: Solid Echogenicity: Hyperechoic Shape: wider than tall. Margins: Smooth Echogenic foci: Macro calcifications. Total points: 4 ACR TI-RADS category: Moderately suspicious on the basis of morphology but entirely unchanged since 02/26/2021 exam and favored to represent a benign nodule. Nodule number: 2 Location: Left inferior Size: 1.9 x 1.1 x 1.6 cm, increased in one dimension by 6 millimeters when compared with prior study.. Composition: Solid Echogenicity: Hypoechoic Shape: wider than tall. Margins: Smooth Echogenic foci: None Total points: Poor ACR TI-RADS category: Moderately suspicious, very slightly increased in size from previous exam. Continued observation recommended. Nodule number: 3 Location: Right inferior Size: Unchanged, 2.6 x 1.8 x 1.3 cm. Composition: Solid Echogenicity: Isoechoic Shape: wider than tall. Margins: Smooth Echogenic foci: None Total points: 3 ACR TI-RADS category: Mildly suspicious. IMPRESSION: Slight increase in size of left inferior thyroid nodule, moderately suspicious. Other nodules unchanged and highly likely to represent benign etiology. Continued annual observation is recommended for all nodules to document 3 year stability. Dictated by: Mickey Santos M.D. on 05/12/2022 at 20:31 Approved by: Mickey Santos M.D. on 05/12/2022 at 20:36
== END ==
PROVIDERS: PCP Student in an Organized Health Care Education/Training Program; Referring Provider Student in an Organized Health Care Education/Training Program; Visit Provider Student in an Organized Health Care Education/Training Program
DX: E04.2 Nontoxic multinodular goiter (principal)
CPT/HCPCS: 76536

== ENCOUNTER → 2022-07-08 09:37 | Outpatient (CLI) | payer BC, SELFPAY ==
[2022-07-08 10:31] LABS: Cholesterol 183 mg/dL (140-199); HDL Cholesterol 51 mg/dL (40-60); LDL Cholesterol Calculated 121 mg/dL (<100); Triglycerides 57 mg/dL (35-150)
[2022-07-08 11:01] LABS: Prostate Specific Antigen Scrn 2.03 ng/mL (0.1-4.0)
[2022-07-08 11:33] LABS: Hep C Virus Ab w/Reflex Quant NEGATIVE s/c (NEGATIVE)
== END ==
PROVIDERS: PCP Student in an Organized Health Care Education/Training Program; Referring Provider Student in an Organized Health Care Education/Training Program; Visit Provider Student in an Organized Health Care Education/Training Program
DX: E78.00 Pure hypercholesterolemia, unspecified (principal); Z11.59 Encounter for screening for other viral diseases; Z12.5 Encounter for screening for malignant neoplasm of prostate
CPT/HCPCS: 36415; 80061; 86803; G0103

== ENCOUNTER → 2023-07-15 07:25 | Outpatient (CLI) | payer OTHER, SELFPAY ==
[2023-07-15 08:19] LABS: Hemoglobin A1C% w Est Avg Glu 5.7 % (4.0-6.0)
[2023-07-15 08:41] LABS: Alanine Aminotransferase 53 IU/L (<50); Albumin 4.3 g/dL (3.5-5.0); Albumin Globulin Ratio 1.7 (1.0-2.8); Alkaline Phosphatase 53 U/L (38-126); Aspartate Aminotransferase 29 IU/L (17-59); BUN Creatinine Ratio 15.1 (6-22); Bilirubin Total 1.5 mg/dL (0.2-1.3); Blood Urea Nitrogen 16 mg/dL (9-20); Calcium 9.3 mg/dL (8.4-10.2); Carbon Dioxide 31 mmol/L (22-32); Chloride 106 mmol/L (98-107); Cholesterol 197 mg/dL (140-199); Estimated Glomerular Filt Rate > 60 mL/min (>60); Globulin 2.6 g/dL (1.7-4.1); Glucose 96 mg/dL (80-110); HDL Cholesterol 57 mg/dL (40-60); HEMOLYSIS < 15 (0-50); LDL Cholesterol Calculated 123 mg/dL (<100); Potassium 4.6 mmol/L (3.4-5.1); Sodium 140 mmol/L (137-145); Total Protein 6.9 g/dL (6.3-8.2); Triglycerides 83 mg/dL (35-150)
[2023-07-15 09:11] LABS: Prostate Specific Antigen Scrn 1.58 ng/mL (0.1-4.0)
[2023-07-16 19:58] LABS: HIV 1 & 2 Ab/Ag 4th Gen Combo NEGATIVE (NEGATIVE)
== END ==
PROVIDERS: PCP Family Medicine; Referring Provider Family Medicine; Visit Provider Family Medicine
DX: E78.00 Pure hypercholesterolemia, unspecified (principal); R03.0 Elevated blood-pressure reading, without diagnosis of hypertension; Z11.4 Encounter for screening for human immunodeficiency virus [HIV]; Z12.5 Encounter for screening for malignant neoplasm of prostate
CPT/HCPCS: 36415; 80053; 80061; 83036; 87389; G0103

== ENCOUNTER → 2024-07-29 07:05 | Outpatient (CLI) | payer MEDICARE, OTHER, SELFPAY ==
[2024-07-29 08:31] LABS: Hemoglobin A1C% w Est Avg Glu 5.6 % (4.0-6.0)
[2024-07-29 10:37] LABS: Alanine Aminotransferase 44 IU/L (<50); Albumin 4.5 g/dL (3.5-5.0); Alkaline Phosphatase 54 U/L (38-126); Aspartate Aminotransferase 29 IU/L (17-59); BUN Creatinine Ratio 13.9 (6-22); Bilirubin Total 2.1 mg/dL (0.2-1.3); Blood Urea Nitrogen 16 mg/dL (9-20); Calcium 9.7 mg/dL (8.4-10.2); Carbon Dioxide 25 mmol/L (22-32); Chloride 103 mmol/L (98-107); Cholesterol 136 mg/dL (140-199); Estimated Glomerular Filt Rate > 60 mL/min (>60); Globulin 2.3 g/dL (1.7-4.1); Glucose 107 mg/dL (80-110); HDL Cholesterol 47 mg/dL (40-60); HEMOLYSIS < 15 (0-50); LDL Cholesterol Calculated 73 mg/dL (<100); Potassium 4.8 mmol/L (3.4-5.1); Sodium 137 mmol/L (137-145); Total Protein 6.8 g/dL (6.3-8.2); Triglycerides 80 mg/dL (35-150)
[2024-07-29 16:46] LABS: Prostate Specific Antigen Scrn 1.87 ng/mL (0.1-4.0)
== END ==
PROVIDERS: PCP Family Medicine; Referring Provider Family Medicine; Visit Provider Family Medicine
DX: Z00.00 Encounter for general adult medical examination without abnormal findings (principal); E78.00 Pure hypercholesterolemia, unspecified; Z12.5 Encounter for screening for malignant neoplasm of prostate
CPT/HCPCS: 36415; 80053; 80061; 83036; G0103